=== PATIENT | female | born 1945 | race Caucasian/White ===

== ENCOUNTER 2023-03-23 12:26 | Emergency (ER) | payer OTHER ==
[~2023-03-23] VITALS: Ht 152.4 cm; Wt 77.6 kg
[~2023-03-23 12:26] MED LIST: GLUCOTROL10 MG PO; LASIX20 MG PO; SYNTHROID50 MCG PO; TENORMIN0.5 MG/ML IV
== END 2023-03-23 16:10 | disposition home or self-care (01) ==
LOC: ER 12:26
DX: U07.1 COVID-19 (principal); J40 Bronchitis, not specified as acute or chronic; E11.9 Type 2 diabetes mellitus without complications; Z79.84 Long term (current) use of oral hypoglycemic drugs; I10 Essential (primary) hypertension